=== PATIENT | female | born 1950 | race Native Hawaiian/Other Pacific Islander ===

== ENCOUNTER 2016-05-21 10:58 | Outpatient (CLI) | payer MEDICARE ==
--- NOTE | 2016-05-21 14:48 | Mammography Report ---
BILATERAL DIGITAL DIAGNOSTIC MAMMOGRAM with CAD and LEFT BREAST ULTRASOUND: 05/21/16 10:58:00 CLINICAL: Left breast pain. COMPARISON:04/20/15 FINDINGS: The breasts are predominantly fatty with a few bilateral stable scattered fibroglandular densities.No mass, architectural distortion or suspicious calcifications. Bilateral benign calcifications. Ultrasound of left breast (including all four quadrants and the retroareolar area) was performed and demonstrated normal fibroglandular and fatty structures. No mass, cyst or shadowing. IMPRESSION: Negative mammogram and negative left breast ultrasound. BI-RADS CATEGORY: 2 - - Benign RECOMMENDATION: Routine mammographic screening in one year. ACR BI-RADS MAMMOGRAPHIC CODES: 0 = Needs additional imaging evaluation; 1 = Negative; 2 = Benign; 3 = Probably benign; 4 = Suspicious; 5 = Malignant; 6 = Known biopsy-proven malignancy COMMENT: 1. Dense breast tissue, i.e., adenosis, fibrocystic changes, etc., may obscure an underlying neoplasm. 2. Approximately 10% of cancers are not detected with mammography. 3. A negative mammography report should not delay biopsy if a clinically suspicious mass is present. COMMENT: Patient follow-up letters are generated by our [employer] application.
== END 2016-05-21 10:59 | disposition home or self-care (01) ==
LOC: SPVWC 10:58
PROVIDERS: ATTEND Obstetrics & Gynecology
DX: N64.4 Mastodynia (principal)
CPT/HCPCS: 76641; G0204; 77066

== ENCOUNTER 2017-06-02 08:00 | Outpatient (CLI) | payer MEDICARE ==
--- NOTE | 2017-06-03 15:20 | Mammography Report ---
BILATERAL DIGITAL SCREENING MAMMOGRAM with CAD : 06/02/17 08:00:00 CLINICAL: Routine screening. COMPARISON:05/21/16 FINDINGS: The breasts are heterogeneously dense, which may obscure small masses.A right outer asymmetry on the CC view is stable compared to prior exams. No mass, architectural distortion or suspicious calcifications. IMPRESSION: No mammographic evidence of malignancy. BI-RADS CATEGORY: 2 -- Benign RECOMMENDATION: Routine mammographic screening in one year. COMMENT: Patient follow-up letters are generated by our [employer] application.
== END 2017-06-02 08:01 | disposition home or self-care (01) ==
LOC: SPVWC 08:00
PROVIDERS: ATTEND Obstetrics & Gynecology
DX: Z12.31 Encounter for screening mammogram for malignant neoplasm of breast (principal)
CPT/HCPCS: 77067

== ENCOUNTER 2018-06-04 11:20 | Outpatient (CLI) | payer MEDICARE ==
--- NOTE | 2018-06-04 12:02 | Mammography Report ---
Bilateral mammogram: Compared to 06/02/17. CAD study utilized. Findings: Predominant study this tissue bilaterally. No mass or microcalcifications. Benign calcifications bilaterally. Normal axilla. Impression: Benign findings. Annual followup recommended. BI-RADS CATEGORY: 2 = Benign ACR BI-RADS MAMMOGRAPHIC CODES: 0 = Needs additional imaging evaluation; 1 = Negative; 2 = Benign; 3 = Probably benign; 4 = Suspicious; 5 = Malignant; 6 = Known biopsy-proven malignancy COMMENT: 1. Dense breast tissue, i.e., adenosis, fibrocystic changes, etc., may obscure an underlying neoplasm. 2. Approximately 10% of cancers are not detected with mammography. 3. A negative mammography report should not delay biopsy if a clinically suspicious mass is present. COMMENT: Patient follow-up letters are generated in [employer].
== END 2018-06-04 11:21 | disposition home or self-care (01) ==
LOC: SPVWC 11:20
PROVIDERS: ATTEND Obstetrics & Gynecology
DX: Z12.31 Encounter for screening mammogram for malignant neoplasm of breast (principal)
CPT/HCPCS: 77067

== ENCOUNTER 2020-06-02 10:37 | Outpatient (CLI) | payer MEDICARE ==
--- NOTE | 2020-06-02 12:00 | Mammography Report ---
DIGITAL SCREENING MAMMOGRAM WITH CAD, 06/02/2020 CLINICAL INFORMATION / INDICATION: Routine screening mammography. TECHNIQUE: Digital bilateral 2D mammography was obtained in the craniocaudal and mediolateral obliqu e projections. This examination was interpreted with the benefit of Computer-Aided Detection analysis . COMPARISON: 06/04/2018 FINDINGS: Breast Density: The breasts are heterogeneously dense, which may obscure small masses. No dominant mass, suspicious calcifications, or architectural distortion in either breast. Benign-appearing bilateral calcifications are again seen. IMPRESSION: No mammographic evidence of malignancy. Follow up recommendation: Routine yearly BI-RADS Category 2: Benign. A "normal" or negative report should not discourage follow up or biopsy of a clinically significant f inding. A written summary of these findings will be mailed to the patient. The patient will be entered into a mammography reporting system which will generate a reminder letter for the patient's next appointmen t at the appropriate interval. The [employer] recommends yearly mammograms starting at age 40 and continuing as l nena as a woman is in good health. Breast MRI is recommended for women with an approximate 20-25% or greater lifetime risk of breast cancer, including women with a strong family history of breast or ova cornel cancer or who have been treated for Hodgkin's disease. Signer Name: José Miguel Acosta MD Signed: 06/02/2020 11:55 AM Workstation Name: [id number]
== END 2020-06-02 10:38 | disposition home or self-care (01) ==
LOC: SPVWC 10:37
PROVIDERS: ATTEND Obstetrics & Gynecology
DX: Z12.31 Encounter for screening mammogram for malignant neoplasm of breast (principal)
CPT/HCPCS: 77067